=== PATIENT | female | born 1965 | race Caucasian/White ===

== ENCOUNTER 2025-02-01 16:32 | Emergency (ER) | payer OTHER ==
[2025-02-01 16:38] VITALS: RESP 18
--- NOTE | 2025-02-01 17:00 | ED ---
General Adult HPI - General Chief complaint: Fall Stated complaint: Fall/Head injury Time Seen by Provider: 02/01/25 16:48 Source: patient, RN notes reviewed Mode of arrival: ambulatory Limitations: no limitations - History of Present Illness Initial comments: 59-year-old female presenting to emergency department after a fall and subsequent forehead laceration. Patient states that she was up approximately 5 feet on a ladder looking for her on the roof when the ladder legs open causing her to fall on the ladder onto the ground. Patient states that she was tightly holding the rungs to the ladder and when she made impact on the ground the rungs struck her in the forehead. Patient denies loss of consciousness at the time of the injury. She is currently denying headache, neck pain, visual disturbances, nausea or vomiting. She denies other injuries at the time of the fall. Denies blood thinner use. States she is up-to-date on her tetanus. - Related Data Previous Rx's Medication Instructions Recorded Cephalexin [Keflex] 500 mg PO Q6HR #40 cap 02/01/25 Allergies Allergy/AdvReac Type Severity Reaction Status Date / Time Sulfa (Sulfonamide Allergy Rash/Hives Verified 02/01/25 17:05 Antibiotics) Review of Systems ROS Statement: Those systems with pertinent positive or pertinent negative responses have been documented in the HPI. ROS Other: All systems not noted in ROS Statement are negative. Past Medical History Past Medical History: No Reported History History of Any Multi-Drug Resistant Organisms: None Reported Past Surgical History: No Surgical Hx Reported Past Psychological History: No Psychological Hx Reported Smoking Status: Never smoker Past Alcohol Use History: None Reported, Rare Past Drug Use History: None Reported General Exam Limitations: no limitations General appearance: alert, in no apparent distress Expanded Head exam: Present: laceration. Absent: raccoon eyes, forrester's sign, tenderness of temporal artery, CSF rhinorrhea, CSF otorrhea Eye exam: Present: normal appearance, PERRL, EOMI. Absent: scleral icterus, conjunctival injection, periorbital swelling ENT exam: Present: normal exam, mucous membranes moist Neck exam: Present: normal inspection. Absent: tenderness, meningismus, lymphadenopathy Respiratory exam: Present: normal lung sounds bilaterally. Absent: respiratory distress, wheezes, rales, rhonchi, stridor Cardiovascular Exam: Present: regular rate, normal rhythm, normal heart sounds. Absent: systolic murmur, diastolic murmur, rubs, gallop, clicks GI/Abdominal exam: Present: soft, normal bowel sounds. Absent: distended, tenderness, guarding, rebound, rigid Extremities exam: Present: normal inspection, full ROM, normal capillary refill. Absent: tenderness, pedal edema, joint swelling, calf tenderness Course Vital Signs 02/01/25 02/01/25 16:33 18:18 Temperature 97.5 F L 98.8 F Pulse Rate 91 78 Respiratory 18 18 Rate Blood Pressure 153/106 145/90 O2 Sat by Pulse 98 98 Oximetry Procedures - Laceration Laceration #1 Consent Obtained: verbal consent Indication: laceration Site: face (forehead) Size (cm): 17 Description: linear Depth: simple, single layer Anesthetic Used: lidocaine 1% Anesthesia Technique: local infiltration Amount (mls): 7 Pre-repair: deep structures intact Type of Sutures: nylon Size of Sutures: 4-0, 5-0 Number of Sutures: 15 Technique: simple, interrupted Patient Tolerated Procedure: well, no complications Medical Decision Making - Medical Decision Making Was pt. sent in by a medical professional or institution ([facility], [facility], urgent care, hospital, or fpc...) When possible be specific @ -No Did you speak to anyone other than the patient for history (EMS, parent, family, police, friend...)? What history was obtained from this source @ -No Did you review nursing and triage notes (agree or disagree)? Why? @ -I reviewed and agree with nursing and triage notes Were old charts reviewed (outside hosp., previous admission, EMS record, old EKG, old radiological studies, urgent care reports/EKG's, fpc records)? Report findings @ -No old charts were reviewed Differential Diagnosis (chest pain, altered mental status, abdominal pain women, abdominal pain men, vaginal bleeding, weakness, fever, dyspnea, syncope, headache, dizziness, GI bleed, back pain, seizure, CVA, palpatations, mental health, musculoskeletal)? @ -Laceration, skin avulsion, concussion, intracranial hemorrhage, this list is not all inclusive EKG interpreted by me (3pts min.). @ -None X-rays interpreted by me (1pt min.). @ -None done CT interpreted by me (1pt min.). @ -None done U/S interpreted by me (1pt. min.). @ -None done What testing was considered but not performed or refused? (CT, X-rays, U/S, labs)? Why? @ -CT imaging of the brain and C-spine and facial bones was considered but patient had refused. Patient states that she is not having a headache did not lose consciousness is not complaining of neck pain and reports that she does not feel it is necessary to complete a CT image. Patient has sound medical decision making and is medically competent and able to refuse recommended testing. What meds were considered but not given or refused? Why? @ -None Did you discuss the management of the patient with other professionals (professionals i.e. , PA, [facility], lab, RT, psych nurse, social service worker, ash collector, teacher, resident medical officer, case management specialist)? Give summary @ -No Was smoking cessation discussed for >3mins.? @ -No Was critical care preformed (if so, how long)? @ -No Were there social determinants of health that impacted care today? How? (Homelessness, low income, unemployed, alcoholism, drug addiction, transportation, low edu. Level, literacy, decrease access to med. care, alf, rehab)? @ -No Was there de-escalation of care discussed even if they declined (Discuss DNR or withdrawal of care, Hospice)? DNR status @ -No What co-morbidities impacted this encounter? (DM, HTN, Smoking, COPD, CAD, Cancer, CVA, ARF, Chemo, Hep., AIDS, mental health diagnosis, sleep apnea, morbid obesity)? @ -None Was patient admitted / discharged? Hospital course, mention meds given and route, prescriptions, significant lab abnormalities, going to OR and other pertinent info. @ -Discharge. 59-year-old female presenting to the ER for a fall. There is a noted 7 inch laceration over the patient's superior forehead near the hairline. Patient is neurologically intact. Patient did refuse CT imaging. Area was cleansed with Betadine solution. Area anesthetized with local lidocaine. 15 simple interrupted sutures were placed with 5-0 and 6-0 nylon and patient is instructed to follow-up with primary care provider or return to the emergency department in 5 to 7 days for suture removal. Recommend she continue Tylenol and/or Motrin as needed for pain relief and to ice the affected area. Case discussed with my attending Dr. Maurer Undiagnosed new problem with uncertain prognosis? @ -No Drug Therapy requiring intensive monitoring for toxicity (Heparin, Nitro, Ins ulin, Cardizem)? @ -No Were any procedures done? @ -laceration repair with 5-0 and 6-0 Diagnosis/symptom? @ -laceration, fall Acute, or Chronic, or Acute on Chronic? @ -acute Uncomplicated (without systemic symptoms) or Complicated (systemic symptoms)? @ -uncomplicated Side effects of treatment? @ -No Exacerbation, Progression, or Severe Exacerbation? @ -No Poses a threat to life or bodily function? How? (Chest pain, [place], [place], pneumonia, PE, COPD, DKA, ARF, appy, cholecystitis, CVA, Diverticulitis, Homicidal, Suicidal, threat to staff... and all critical care pts) @ -No Disposition Clinical Impression: Fall, Laceration Disposition: HOME SELF-CARE Condition: Good Instructions (If sedation given, give patient instructions): Care For Your Stitches (ED) Additional Instructions: Please return to the Emergency Department if symptoms worsen or any other concerns. Please return to the ER or your primary care provider in approximately 5 to 7 days for suture removal. Prescriptions: Cephalexin [Keflex] 500 mg PO Q6HR #40 cap Is patient prescribed a controlled substance at d/c from ED?: No Referrals: Howard Pretty Jr, DO [Primary Care Provider] - 1-2 days Time of Disposition: 18:10
[2025-02-01] MEDS: LIDOCAINE 1% INJ 10MG/ML (20 ML MDV) SQ ONE (17:10)
[2025-02-01 18:20] VITALS: BP 145/90; PULSE 78; TEMP 98.8
== END 2025-02-01 18:19 | disposition home or self-care (01) ==
LOC: EC 16:32
DX: S01.81XA Laceration without foreign body of other part of head, initial encounter (principal); W11.XXXA Fall on and from ladder, initial encounter
CPT/HCPCS: 99283; 12005; J2003